=== PATIENT | female | born 1990 | race African-American/Black ===

== ENCOUNTER 2016-10-18 21:48 | Emergency (ER) | payer SELFPAY ==
[~2016-10-18] VITALS: Ht 170.2 cm; Wt 101.8 kg
[~2016-10-18 21:48] MED LIST: AMOXICILLIN500 MG PO; BENADRYL 50MG C50 MG PO; CIPRO500 MG OR; LORTAB 5 OR; MEDDOSEPAK PO; NAPROSYN500 MG PO; PEPCID20 MG PO
[2016-10-18 22:55] LABS: HEMATOCRIT 31.7 % (37.0-47.0); HEMOGLOBIN 10.1 g/dl (12.0-16.0); IMMATURE GRANULOCYTES 0.3 % (0.0-1.0); MEAN CELL VOLUME 78.9 fL CALC (80.0-100.0); MEAN CORPUSCULAR HGB 25.1 pG CALC (26.0-32.0); MEAN CORPUSCULAR HGB CONC 31.9 g/L CALC (32.0-36.0); NEUT# 4.23 thou/uL (2.00-7.15); RED BLOOD COUNT 4.02 mill/uL (4.20-5.60); RED CELL DISTRI WIDTH 14.7 % (11.5-15.5)
[2016-10-18 22:57] LABS: URINE BILIRUBIN - DIPSTICK NEGATIVE (NEGATIVE); URINE BLOOD DIPSTICK MODERATE (NEGATIVE); URINE CLARITY CLEAR; URINE COLOR YELLOW; URINE GLUCOSE - DIPSTICK NEGATIVE (NEGATIVE); URINE KETONE NEGATIVE (NEGATIVE); URINE NITRITE - DIPSTICK NEGATIVE (Negative); URINE PROTEIN - DIPSTICK NEGATIVE (NEG-TRACE)
[2016-10-18 23:02] LABS: URINE LEUK ESTERASE SMALL (NEGATIVE)
[2016-10-18 23:06] LABS: ALBUMIN 4.1 g/dL (3.2-5.0); ALKALINE PHOSPHATASE 93 u/l (38-126); ANION GAP 15 (6-22 (CALC)); BILIRUBIN, TOTAL 0.2 mg/dL (0.0-1.4); BUN 8 mg/dL (7-17); BUN/CREATININE RATIO 12 (12-20 (CALC)); CALCIUM 9.2 mg/dL (8.4-10.2); CARBON DIOXIDE 24 mmol/l (22-30); CHLORIDE 106 mmol/l (95-108); CREATININE 0.7 mg/dL (0.5-1.0); GFR > 60 ML/MIN (>=60 (CALC)); GFR FOR AFR.AMER. > 60 ML/MIN (>=60 (CALC)); GLUCOSE 86 mg/dL (65-105); POTASSIUM 3.7 mmol/l (3.5-5.1); SGOT/AST 16 u/l (14-36); SGPT/ALT 17 u/l (9-52); SODIUM 141 mmol/l (137-146); TOTAL PROTEIN 7.7 g/dL (6.3-8.2)
[2016-10-18 23:10] LABS: URINE EPITHELIAL CELLS FEW EPI/hpf (0-FEW); URINE WBC 0-2 WBC/hpf (0-5)
[2016-10-18 23:54] LABS: BETA-HCG, QUANT(RESULT NUMBER) 22087 mIU/mL
[2016-10-19 03:13] VITALS: BP 99/63
== END 2016-10-19 03:03 | disposition home or self-care (01) | DRG 782 ==
LOC: ED 21:48
PROVIDERS: Emergency Medicine
DX: O26.851 Spotting complicating pregnancy, first trimester (principal); R93.8 Abnormal findings on diagnostic imaging of other specified body structures; Z3A.01 Less than 8 weeks gestation of pregnancy

== ENCOUNTER 2016-12-17 22:25 | Emergency (ER) | payer OTHER ==
[~2016-12-17] VITALS: Ht 170.2 cm; Wt 96.8 kg
[2016-12-17] MEDS ORDERED: PRENATA3 PO (23:39)
[2016-12-18 01:04] VITALS: BP 131/68
== END 2016-12-18 01:10 | disposition home or self-care (01) | DRG 552 ==
LOC: ED 22:25
DX: M54.6 Pain in thoracic spine (principal); Z33.1 Pregnant state, incidental; W22.8XXA Striking against or struck by other objects, initial encounter; Y93.89 Activity, other specified; Y92.89 Other specified places as the place of occurrence of the external cause

== ENCOUNTER 2016-12-28 14:08 | Emergency (ER) | payer OTHER ==
[~2016-12-28] VITALS: Ht 170.2 cm; Wt 97.0 kg
[~2016-12-28 14:08] MED LIST changes: +PRENATA3 PO
[2016-12-28 14:49] LABS: URINE BLOOD DIPSTICK NEGATIVE (NEGATIVE); URINE GLUCOSE - DIPSTICK NEGATIVE (NEGATIVE); URINE KETONE >=80 mg/dL (NEGATIVE); URINE NITRITE - DIPSTICK NEGATIVE (Negative); URINE PH 5.5 (4.5-8.0); URINE PROTEIN - DIPSTICK NEGATIVE (NEG-TRACE); URINE SPECIFIC GRAVITY >=1.030
[2016-12-28 14:50] LABS: HEMATOCRIT 32.4 % (37.0-47.0); HEMOGLOBIN 10.8 g/dl (12.0-16.0); IMMATURE GRANULOCYTES 0.4 % (0.0-1.0); MEAN CELL VOLUME 77.1 fL CALC (80.0-100.0); MEAN CORPUSCULAR HGB 25.7 pG CALC (26.0-32.0); MEAN CORPUSCULAR HGB CONC 33.3 g/L CALC (32.0-36.0); NEUT# 5.84 thou/uL (2.00-7.15); RED BLOOD COUNT 4.2 mill/uL (4.20-5.60); RED CELL DISTRI WIDTH 15.3 % (11.5-15.5)
[2016-12-28 14:59] LABS: URINE BILIRUBIN - DIPSTICK SMALL (NEGATIVE); URINE CLARITY TURBID; URINE COLOR DK. YELLOW; URINE LEUK ESTERASE SMALL (NEGATIVE)
[2016-12-28 15:06] LABS: ALBUMIN 4.2 g/dL (3.2-5.0); ALKALINE PHOSPHATASE 135 u/l (38-126); AMYLASE 61 u/l (30-110); ANION GAP 17 (6-22 (CALC)); BILIRUBIN, TOTAL 0.5 mg/dL (0.0-1.4); BUN 3 mg/dL (7-17); BUN/CREATININE RATIO 7 (12-20 (CALC)); CALCIUM 9.6 mg/dL (8.4-10.2); CARBON DIOXIDE 19 mmol/l (22-30); CHLORIDE 106 mmol/l (95-108); CREATININE 0.5 mg/dL (0.5-1.0); GFR > 60 ML/MIN (>=60 (CALC)); GFR FOR AFR.AMER. > 60 ML/MIN (>=60 (CALC)); GLUCOSE 86 mg/dL (65-105); LIPASE 52 u/l (23-300); POTASSIUM 3.9 mmol/l (3.5-5.1); SGOT/AST 37 u/l (14-36); SGPT/ALT 48 u/l (9-52); SODIUM 138 mmol/l (137-146); TOTAL PROTEIN 7.8 g/dL (6.3-8.2)
[2016-12-28 15:22] LABS: URINE SQUAMOUS EPITHELIAL CELL FEW EPI/hpf (0-FEW); URINE YEAST FEW hpf
[2016-12-28] MEDS ORDERED: MACRODANTIN100 MG PO (15:37)
[2016-12-28 15:51] VITALS: BP 118/78
[2016-12-29] MEDS ORDERED: ZOFRAN ODT4 MG PO (08:44)
[2016-12-29] MEDS ORDERED: MOTRIN800 MG PO (08:44)
== END 2016-12-28 16:08 | disposition home or self-care (01) | DRG 781 ==
LOC: ED 14:08
PROVIDERS: Emergency Medicine
DX: O23.92 Unspecified genitourinary tract infection in pregnancy, second trimester (principal); R50.9 Fever, unspecified; R11.10 Vomiting, unspecified; Z3A.17 17 weeks gestation of pregnancy; R10.32 Left lower quadrant pain; K59.00 Constipation, unspecified

== ENCOUNTER 2016-12-29 05:15 | Emergency (ER) | payer OTHER ==
[~2016-12-29 05:15] MED LIST changes: +MACRODANTIN100 MG PO
[2016-12-29] MEDS ORDERED: MOTRIN800 MG PO (08:44)
[2016-12-29] MEDS ORDERED: ZOFRAN ODT4 MG PO (08:44)
== END 2016-12-29 05:35 | disposition left against medical advice (07) | DRG 951 ==
LOC: ED 05:15 → LWOBS 05:35
DX: Z91.19 Patient's noncompliance with other medical treatment and regimen (principal)

== ENCOUNTER 2016-12-29 06:07 | Emergency (ER) | payer OTHER ==
[~2016-12-29] VITALS: Ht 170.2 cm; Wt 91.6 kg
[2016-12-29 08:01] LABS: HEMOGLOBIN 10.7 g/dl (12.0-16.0); IMMATURE GRANULOCYTES 0.3 % (0.0-1.0); MEAN CELL VOLUME 77.1 fL CALC (80.0-100.0); MEAN CORPUSCULAR HGB 25.8 pG CALC (26.0-32.0); MEAN CORPUSCULAR HGB CONC 33.4 g/L CALC (32.0-36.0); NEUT# 5.93 thou/uL (2.00-7.15); RED BLOOD COUNT 4.15 mill/uL (4.20-5.60); RED CELL DISTRI WIDTH 15.1 % (11.5-15.5)
[2016-12-29 08:18] LABS: ALBUMIN 4.4 g/dL (3.2-5.0); ALKALINE PHOSPHATASE 124 u/l (38-126); ANION GAP 16 (6-22 (CALC)); BILIRUBIN, TOTAL 1.3 mg/dL (0.0-1.4); BUN 3 mg/dL (7-17); BUN/CREATININE RATIO 7 (12-20 (CALC)); CALCIUM 9.5 mg/dL (8.4-10.2); CARBON DIOXIDE 20 mmol/l (22-30); CHLORIDE 105 mmol/l (95-108); CREATININE 0.4 mg/dL (0.5-1.0); GFR > 60 ML/MIN (>=60 (CALC)); GFR FOR AFR.AMER. > 60 ML/MIN (>=60 (CALC)); GLUCOSE 86 mg/dL (65-105); POTASSIUM 4.2 mmol/l (3.5-5.1); SGOT/AST 46 u/l (14-36); SGPT/ALT 42 u/l (9-52); SODIUM 137 mmol/l (137-146); TOTAL PROTEIN 8.6 g/dL (6.3-8.2)
[2016-12-29] MEDS ORDERED: MOTRIN800 MG PO (08:44)
[2016-12-29] MEDS ORDERED: ZOFRAN ODT4 MG PO (08:44)
[2016-12-29 09:23] VITALS: BP 126/83
== END 2016-12-29 09:53 | disposition home or self-care (01) | DRG 782 ==
LOC: ED 06:07
PROVIDERS: Emergency Medicine
DX: O34.12 Maternal care for benign tumor of corpus uteri, second trimester (principal); D25.9 Leiomyoma of uterus, unspecified; Z3A.19 19 weeks gestation of pregnancy

== ENCOUNTER 2018-04-06 15:39 | Emergency (ER) | payer OTHER ==
[~2018-04-06] VITALS: Ht 170.2 cm; Wt 95.0 kg
[~2018-04-06 15:39] MED LIST changes: +MOTRIN800 MG PO; +TUMS500 MG PO; +ZOFRAN ODT4 MG PO
[2018-04-06 16:41] LABS: HEMATOCRIT 33.7 % (37.0-47.0); HEMOGLOBIN 10.7 g/dl (12.0-16.0); IMMATURE GRANULOCYTES 0.6 % (0.0-5.0); MEAN CELL VOLUME 80.2 fL CALC (80.0-100.0); MEAN CORPUSCULAR HGB 25.5 pG CALC (26.0-32.0); MEAN CORPUSCULAR HGB CONC 31.8 g/L CALC (32.0-36.0); NEUT# 6.88 thou/uL (2.00-7.15); RED BLOOD COUNT 4.2 mill/uL (4.20-5.60); RED CELL DISTRI WIDTH 14.4 % (11.5-15.5)
[2018-04-06 16:53] LABS: ALBUMIN 4.2 g/dL (3.2-5.0); ALKALINE PHOSPHATASE 143 u/l (38-126); ANION GAP 13 (6-22 (CALC)); BILIRUBIN, TOTAL 0.4 mg/dL (0.0-1.4); BUN 9 mg/dL (7-17); BUN/CREATININE RATIO 15 (12-20 (CALC)); CARBON DIOXIDE 23 mmol/l (22-30); CHLORIDE 108 mmol/l (95-108); CREATININE 0.6 mg/dL (0.5-1.0); GFR > 60 ML/MIN (>=60 (CALC)); GFR FOR AFR.AMER. > 60 ML/MIN (>=60 (CALC)); LIPASE 27 u/l (23-300); POTASSIUM 4.3 mmol/l (3.5-5.1); SGOT/AST 18 u/l (14-36); SODIUM 140 mmol/l (137-146); TOTAL PROTEIN 8.2 g/dL (6.3-8.2)
[2018-04-06] MEDS ORDERED: ZOFRAN4 MG/TAB PO (18:43)
[2018-04-06 18:44] LABS: URINE BILIRUBIN - DIPSTICK NEGATIVE (NEGATIVE); URINE BLOOD DIPSTICK NEGATIVE (NEGATIVE); URINE COLOR YELLOW; URINE GLUCOSE - DIPSTICK NEGATIVE (NEGATIVE); URINE KETONE NEGATIVE (NEGATIVE); URINE LEUK ESTERASE NEGATIVE (NEGATIVE); URINE NITRITE - DIPSTICK NEGATIVE (Negative); URINE PROTEIN - DIPSTICK NEGATIVE (NEG-TRACE); URINE SPECIFIC GRAVITY 1.025; URINE UROBILINOGEN - DIPSTICK 0.2 E.U./dL (0.2)
[2018-04-06 18:46] LABS: URINE CLARITY CLEAR
[2018-04-06 19:00] VITALS: BP 126/70
== END 2018-04-06 19:11 | disposition home or self-care (01) ==
LOC: ED 15:39
DX: K52.9 Noninfective gastroenteritis and colitis, unspecified (principal); R19.7 Diarrhea, unspecified; R11.2 Nausea with vomiting, unspecified; R50.9 Fever, unspecified
CPT/HCPCS: J0131

== ENCOUNTER 2019-08-13 | Emergency (ER) | payer SELFPAY ==
[~2019-08-13] MED LIST changes: +ZOFRAN4 MG/TAB PO
[2019-08-13] MEDS ORDERED: AMOXICILLIN500 MG PO (02:43)
[2019-08-13] MEDS ORDERED: VOLTAREN - GENE75 MG PO (02:43)
== END 2019-08-13 02:53 | disposition home or self-care (01) | DRG 159 ==
DX: K04.7 Periapical abscess without sinus (principal)

== ENCOUNTER 2021-02-15 05:43 | Observation (INO) | payer OTHER ==
[~2021-02-15] VITALS: Ht 170.2 cm; Wt 81.0 kg
[~2021-02-15 05:43] MED LIST changes: +VOLTAREN - GENE75 MG PO
[2021-02-15 06:47] LABS: HEMOGLOBIN 9.7 g/dl (12.0-16.0); IMMATURE GRANULOCYTES 0.1 % (0.0-5.0); MEAN CELL VOLUME 77.9 fL CALC (80.0-100.0); MEAN CORPUSCULAR HGB 23.6 pG CALC (26.0-32.0); MEAN CORPUSCULAR HGB CONC 30.3 g/dL CAL (32.0-36.0); NEUT# 5.64 thou/uL (2.00-7.15); RED BLOOD COUNT 4.11 mill/uL (4.20-5.60); RED CELL DISTRI WIDTH 18.5 % (11.5-15.5)
[2021-02-15 06:58] LABS: ALBUMIN 4.3 g/dL (3.2-5.0); ALKALINE PHOSPHATASE 123 u/l (38-126); AMYLASE 78 u/l (30-110); ANION GAP 12 (6-22 (CALC)); BUN 6 mg/dL (7-17); BUN/CREATININE RATIO 10 (12-20 (CALC)); CARBON DIOXIDE 26 mmol/l (22-30); CHLORIDE 104 mmol/l (95-108); CREATININE 0.6 mg/dL (0.5-1.0); GFR > 60 ML/MIN (>=60 (CALC)); GFR FOR AFR.AMER. > 60 ML/MIN (>=60 (CALC)); LIPASE 59 u/l (23-300); POTASSIUM 3.9 mmol/l (3.5-5.1); SGOT/AST 18 u/l (14-36); SODIUM 138 mmol/l (137-146); TOTAL PROTEIN 8.5 g/dL (6.3-8.2)
--- NOTE | 2021-02-15 07:00 | NUR ---
RECEIVED REPORT FROM ANTONIO JADE.
[2021-02-15 07:03] LABS: BILIRUBIN, TOTAL 0.6 mg/dL (0.0-1.4)
--- NOTE | 2021-02-15 08:02 | NUR ---
MEDICATED WITH ZOFRAN 4MG IVP FOR C/O NAUSEA. PT ENCOURAGED TO PROVIDE URINE SPECIMEN
[2021-02-15 09:14] LABS: URINE BILIRUBIN - DIPSTICK NEGATIVE (NEGATIVE); URINE BLOOD DIPSTICK MODERATE (NEGATIVE); URINE COLOR YELLOW; URINE GLUCOSE - DIPSTICK NEGATIVE (NEGATIVE); URINE KETONE 15 mg/dL (NEGATIVE); URINE LEUK ESTERASE TRACE (NEGATIVE); URINE PH 5.5 (4.5-8.0); URINE PROTEIN - DIPSTICK NEGATIVE (NEG-TRACE); URINE UROBILINOGEN - DIPSTICK 0.2 E.U./dL (0.2)
[2021-02-15 09:17] LABS: URINE NITRITE - DIPSTICK NEGATIVE (Negative)
[2021-02-15 09:24] LABS: URINE SQUAMOUS EPITHELIAL CELL MANY EPI/hpf (0-FEW)
[2021-02-15 09:25] LABS: URINE YEAST FEW hpf
--- NOTE | 2021-02-15 09:34 | NUR ---
MD AT BEDSIDE TO DISCUSS RESULTS AND POC.
--- NOTE | 2021-02-15 10:15 | NUR ---
MEDICATED WITH MORPHINE 2MG IVP FOR C/O 12/25 EPIGASTRIC PAIN.
--- NOTE | 2021-02-15 11:51 | NUR ---
REPORT CALLED TO KELI JADE
--- NOTE | 2021-02-15 11:54 | NUR ---
RECEIVED REPORT FROM MAEGAN/ER NURSE. ALL QUESTIONS ANSWERED
--- NOTE | 2021-02-15 12:05 | NUR ---
TO MED SURG VIA STRETCHER
--- NOTE | 2021-02-15 12:12 | NUR ---
PT ARRIVED VIA STRETCHER TO UNIT ACCOMPANIED BY Pastor ISSA RN.
--- NOTE | 2021-02-15 12:34 | NUR ---
PT ARRIVED ON FLOOR VIA WHEELCHAIR. PT ALERT AND ORIENTED X4. PT DENIES ANY PAIN AT THIS TIME. VS AND ASSESSMENT COMPLETE. LUNGS CLEAR. BREATHS ARE EVEN AND NONLABORED, ABDOMEN SOFT AND ROUND. ABDOMEN TENDER TO TOUCH. BOWEL SOUNDS ACTIVE. SKIN INTACT, IV PATENT AND FLUSHED. PERIPHERAL PULSES ARE PALPABLE. PT ORIENTED TO ROOM AND CALL LIGHT. SAFETY PRECAUTIONS IN PLACE AND CALL LIGHT WITHIN PATIENTS REACH. WILL MONITOR PT CLOSELY
[2021-02-15 15:50] VITALS: BP 98/59
--- NOTE | 2021-02-15 15:50 | NUR ---
Pt care resumed at this time by this job specification writer. Pt denies any needs at this time. call light within reach.
--- NOTE | 2021-02-15 16:48 | NUR ---
PT C/O OF PAIN 8/10 SHARP IN DESCRIPTION TO ABD. PT MEDICATED WITH PRN MORPHINE; IVF INITIATED AT THIS TIME TO #20G LAC; IV SITE REMAINS HEALTHY AND PATENT. IV TUBING LABELED WITH CHANGE DATE STICKER. NO OTHER NEEDS AT THIS TIME. CALL LIGHT WITHIN REACH.
--- NOTE | 2021-02-15 16:59 | NUR ---
verbal order obtained from dr kamara for a clear liquid diet if pt tolerates; pt to be NPO after midnight
[2021-02-15 19:00] VITALS: BP 106/58
--- NOTE | 2021-02-15 19:30 | NUR ---
PATIENT RESTING IN BED AT THIS TIME-EASY TO AROUSE. ALERT AND ORIENTEDX3. PATIENT WITH NO COMPLAINTS AT THIS TIME. IVF PATENT AND INFUSING VIA LAC SITE AT 100CC/HR. CALL LIGHTIN REACH. WILL CONT TO MONITOR.
--- NOTE | 2021-02-15 21:08 | NUR ---
PATIENT RESTING IN BED AT THIS TIME. TAKING PO FLUIDS AND TOLERATING WELL. PATIENTIS ASKING FOR FOOD BUT INSTRUCTED ONLY FLUIDS UNTIL MIDNIGHT THEN NPO FOR OR IN AM. IVF PATWENT AND INFUSING ORDERED. PATIENT REFUSED PEPCID-STATES THAT SHE DOESN'T NEED IT SHE DOESN'T HAVE ACID REFLUX. LOVENOX HELD FOR SURGERY TOMORROW. CALL AUBRIE MARIE. WLL CONT TO MONITOR.
--- NOTE | 2021-02-15 23:47 | NUR ---
PATIENT CALLED AND C/O ABD PAIN-8/10 ON PAIN SCALE. MEDICATED WITH MORPHINE 1MG IVP FOR PAIN. IVF NS PATENT AND INFUSING AT 100CC/HR VIA LAC. REINFORCED WITH PATIENT NPO AFTER MIDNIGHT TONIGHT. CALL L IGHT IN REACH. WILL CONT TO MONITOR.
[2021-02-16] VITALS (9 sets, daily range): BP systolic 100–123; BP diastolic 54–77
[2021-02-16 04:47] LABS: HEMATOCRIT 26.7 % (37.0-47.0); HEMOGLOBIN 8.1 g/dl (12.0-16.0); MEAN CELL VOLUME 78.5 fL CALC (80.0-100.0); MEAN CORPUSCULAR HGB 23.8 pG CALC (26.0-32.0); MEAN CORPUSCULAR HGB CONC 30.3 g/dL CAL (32.0-36.0); RED BLOOD COUNT 3.4 mill/uL (4.20-5.60); RED CELL DISTRI WIDTH 18.4 % (11.5-15.5)
[2021-02-16 05:08] LABS: ANION GAP 12 (6-22 (CALC)); BUN 6 mg/dL (7-17); BUN/CREATININE RATIO 10 (12-20 (CALC)); CARBON DIOXIDE 22 mmol/l (22-30); CHLORIDE 107 mmol/l (95-108); CREATININE 0.6 mg/dL (0.5-1.0); GFR > 60 ML/MIN (>=60 (CALC)); GFR FOR AFR.AMER. > 60 ML/MIN (>=60 (CALC)); MAGNESIUM 1.6 mg/dL (1.6-2.3); POTASSIUM 3.7 mmol/l (3.5-5.1); SODIUM 138 mmol/l (137-146)
--- NOTE | 2021-02-16 05:30 | NUR ---
PATIENT RESTING IN BED AT THIS TIME. REMAINS NPO FOR OR THIS MORNING. IVF NS PATENT AND INFUSING VIA LAC AT 100CC/HR. PATIENT MEDICATED FOR ABD PAIN-7/10 ON PAIN SCALE WITH MORPHINE 1MG IVP ORDERED FOR PAIN. CALL LIGHT IN REACH. WILL CONT TO MONITOR.
--- NOTE | 2021-02-16 07:00 | NUR ---
REPORT RECEIVED FROM YASMANY DREW
--- NOTE | 2021-02-16 07:40 | NUR ---
PT RESTING IN LEFT SIDE LAYING POSITION,A&O X3;VS OBTAINED AND ASSESSMENT COMPLETED;PT DENIES ANY CURRENT PAIN OR DISCOMFORTS,PAIN SCALE AND REPORTING EDUCATED;RESPIRATIONS EVEN AND UNLABORED ON RA,CLEAR LUNG SOUNDS;ABDOMEN SOFT ON PALPATION WITH TENDERNESS NOTED;STRONG PEDAL PULSES;SKIN INTACT;#20G TO LAC INFUSING NS @ 100ML/HR,SITE APPEARS HEALTHY;PT VERY RELUCTANT WITH ASSESSMENT STATING "NO ONE EVER LOOKED FOR SWELLING IN MY LEGS! AND YOU DONT HAVE TO EITHER"; ATTEMPTED TO EDUCATE PT ON ASSESSMENT BUT UNSUCESSFUL;PT REFUSING SCHEDULED IV PEPCID WELL STATING "I DONT WANT THAT";PT INSTRUCTED ON NPO DIET;PT TO BE TRANSPORTED TO OR AT APPROX 1000;PT DENIES ANY ADDITIONAL NEEDS AND IS ENCOURAGED TO CALL FOR ASSISTANCE IF NEEDED;FALL PRECAUTIONS IN PLACE WITH BED IN THE LOWEST POSITION AND CALL LIGHT IN REACH;WILL CONTINUE TO MONITOR
--- NOTE | 2021-02-16 08:59 | NUR ---
AT BEDSIDE DISCUSSING POC WITH PT.
--- NOTE | 2021-02-16 09:29 | NUR ---
PT TRANSPORTED TO OR IN STABLE CONDITION VIA STRETCHER ACCOMPANIED BY YASMANY HIGGINBOTHAM AND YASMANY ANGEL.
--- NOTE | 2021-02-16 11:38 | NUR ---
PT ARRIVED BACK TO MED/SURG ROOM 273 IN STABLE CONDITION VIA STRETCHER ACCOMPANIED BY ANAHYRN AND STANLEY,RN;BEDSIDE REPORT RECEIVED BY STANLEY,RN;PT ASSISTED INTO HOSPITAL BED WITH X1 PERSON ASSIST;PT A&O X3, RE-ORIENTED TO ROOM AND CALL LIGHT SYSTEM;PT POST OP KESHA DUQUE 02/16/21;VS OBTAINED AND ASSESSMENT COMPLETED;PT REPORTS ABDOMINAL PAIN RATING 10/10 ON THE PAIN SCALE AND REQUESTS PAIN MEDICATION, PRN PAIN MEDICATION D/C AND CALL PLACED TO AT THIS TIME;NEW ORDERS RECEIVED;RESPIRATIONS EVEN AND UNLABORED ON O2 @ 2L VIA NC-O2 SATS 100%;ABDOMEN SOFT ON PALPATION AND HYPOACTIVE IN ALL 4 QUADRANTS;X4 ABDOMINAL DRESSINGS CDI;STRONG PEDAL PULSES AND SCD'S APPLIED;#20G LAC INFUSING NS @ 100ML/HR;LEMON KALISPEL AND WATER PROVIDED PER REQUEST;PT DENIES ANY ADDITIONAL NEEDS AND IS ENCOURAGED TO CALL FOR ASSISTANCE IF NEEDED;FALL PRECAUTIONS IN PLACE WITH CALL LIGHT IN REACH;WILL CONTINUE TO MONITOR
--- NOTE | 2021-02-16 11:50 | NUR ---
PT REQUESTING SIGNIFIANT OTHER TO VISIT. PT EDUCATED ON CURRENT HOSPITAL NO VISITOR POLICY DUE TO COVID19. PT REPORTS THAT SHE WAS TOLD YESTERDAY 02/15/21 THAT SPOUSE COULD VISIT AFTER SX.CONFIRMED WITH LOCAL BULK DRIVER YASMANY MAYO AND PER SUP SPOUSE WAS ALLOWED TO VISIT ONE TIME RIGHT BEFORE SX AND DID NOT. NO VISITOR POLICY STANDS; PT INFORMED AND VERBALIZES UNDERSTANDING;WILL CONTINUE TO MONITOR
--- NOTE | 2021-02-16 12:05 | NUR ---
PT MEDICATED WITH MORPHINE 1MG SLOW IVP FOR ABDOMINAL PAIN RATING 10/10 ON THE PAIN SCALE;CALL LIGHT IN REACH;WILL CONTINUE TO MONITOR FOR EFFECTIVENESS
--- NOTE | 2021-02-16 13:10 | NUR ---
PT APPEARS TO BE SLEEPING IN SEMI FOWLERS POSITION;RESPIRATIONS EVEN AND UNLABORED ON RA;NO S/S OF DISTESS NOTED;IV SITE PATENT INFUSING NS WITH EASE PER ORDER;ALL SAFETY PRECAUTIONS REMAIN IN PLACE WITH CALL LIGHT IN REACH;WILL CONTINUE TO MONITOR
--- NOTE | 2021-02-16 16:10 | NUR ---
ALL DISCHARGE INSTRUCTIONS PROVIDED AT THIS TIME;PT INSTRUCTED TO F/U WITH PCP IN THE NEXT WEEK, DIET TOLERATED AND TAKE PAIN MEDICATION DIRECTED;RX FOR HYDROCODONE/ACETAMINOPHEN PROVIDED;PT DENIES ANY ADDITIONAL QUESTIONS OR NEEDSLIV SITE REMOVED WITH CATHETER INTACT;WC TO BE PROVIDED FOR D/C HOME;SPOUSE TO TRANSPORT PT HOME;WILL CONTINUE TO MONITOR
--- NOTE | 2021-02-16 16:24 | NUR ---
Discharge instructions given. Patient verbalizes understanding of same. Discharged in stable condition via Wheelchair to Home with family. All belongings sent with pt. PT TRANSPORTED TO [facility] IN STABLE CONDITION VIA ACCOMPANIED BY FLORY DAVE. ALL BELONGINGS LEFT WITH PT AT THIS TIME;SPOUSE TO TRANSPORT PT HOME.
== END 2021-02-16 16:24 | disposition home or self-care (01) ==
LOC: ED 05:43 → ED-I 10:30 → ED 10:42 → MS2 10:43
PROVIDERS: Emergency Medicine; ADMIT Hospitalist; ATTEND Hospitalist
DX: K80.12 Calculus of gallbladder with acute and chronic cholecystitis without obstruction (principal); D64.9 Anemia, unspecified; Z20.822 Contact with and (suspected) exposure to COVID-19
CPT/HCPCS: G0378; J0131; J2710; Q9967; S0164